=== PATIENT | female | born 1965 | race Caucasian/White ===

== ENCOUNTER → 2019-08-04 | Outpatient (CLI) | payer BC | END | disposition home or self-care (01) | LOC: RAH 13:53 | PROVIDERS: ATTEND Nurse Practitioner Adult Health | DX: Z12.31 Encounter for screening mammogram for malignant neoplasm of breast (principal) | CPT/HCPCS: 77067 ==

== ENCOUNTER → 2019-08-19 | Outpatient (CLI) | payer OTHER | END | disposition home or self-care (01) | LOC: RAH 11:09 | PROVIDERS: ATTEND Nurse Practitioner Adult Health | DX: Z13.6 Encounter for screening for cardiovascular disorders (principal) | CPT/HCPCS: 75571 ==

== ENCOUNTER → 2021-03-21 | Outpatient (CLI) | payer BC | END | disposition home or self-care (01) | LOC: RAH 11:18 | PROVIDERS: ATTEND Obstetrics & Gynecology | DX: Z12.31 Encounter for screening mammogram for malignant neoplasm of breast (principal) | CPT/HCPCS: 77067 ==

== ENCOUNTER → 2022-04-12 | Outpatient (CLI) | payer BC | END | disposition home or self-care (01) | LOC: RAH 09:03 | PROVIDERS: ATTEND Obstetrics & Gynecology | DX: Z12.31 Encounter for screening mammogram for malignant neoplasm of breast (principal) | CPT/HCPCS: 77067 ==

== ENCOUNTER → 2023-01-30 | Outpatient (CLI) | payer BC | END | disposition home or self-care (01) | LOC: RAH 08:10 | PROVIDERS: ATTEND Obstetrics & Gynecology | DX: N85.01 Benign endometrial hyperplasia (principal); Z97.5 Presence of (intrauterine) contraceptive device | CPT/HCPCS: 76830 ==

== ENCOUNTER → 2023-04-14 | Outpatient (CLI) | payer BC | END | disposition home or self-care (01) | LOC: RAH 09:46 | PROVIDERS: ATTEND Obstetrics & Gynecology | DX: Z12.31 Encounter for screening mammogram for malignant neoplasm of breast (principal) | CPT/HCPCS: 77067 ==

== ENCOUNTER → 2024-02-05 | Outpatient (CLI) | payer BC | END | disposition home or self-care (01) | LOC: RAH 10:21 | PROVIDERS: ATTEND Obstetrics & Gynecology | DX: N85.01 Benign endometrial hyperplasia (principal) | CPT/HCPCS: 76830 ==

== ENCOUNTER → 2024-04-16 | Outpatient (CLI) | payer BC | END | disposition home or self-care (01) | LOC: RAH 08:51 | PROVIDERS: ATTEND Obstetrics & Gynecology | DX: Z12.31 Encounter for screening mammogram for malignant neoplasm of breast (principal); R92.323 Mammographic fibroglandular density, bilateral breasts | CPT/HCPCS: 77067 ==